=== PATIENT | female | born 1995 | race Caucasian/White ===

== ENCOUNTER 2020-03-10 20:07 | Emergency (ER) | payer BC ==
[2020-03-10 20:43] LABS: Urine Blood NEGATIVE (NEG); Urine Glucose NEGATIVE (NEG); Urine Protein NEGATIVE (NEG); Urine pH 6.5 (5.0-7.0)
[2020-03-10 21:57] LABS: Absolute Lymphocytes (CBC) 1.8 K/uL (0.7-4.9); Basophils % 0.5 % (0-1.3); Hematocrit 40.8 % (36.0-45.0); Lymphocytes % 26.9 % (15.3-44.8); MPV 10.4 fL (7.6-11.3); RBC Red Blood Cell Count 4.69 M/uL (3.86-4.86)
[2020-03-10 22:31] LABS: BUN Blood Urea Nitrogen 13 mg/dL (7-18); Bicarbonate 28 mmol/L (21-32); Glucose Level 114 mg/dL (74-106); HCG, Quantitative 50 mIU/mL (1-3); Potassium 3.5 mmol/L (3.5-5.1); Sodium Level 140 mmol/L (136-145)
--- NOTE | 2020-03-10 22:57 | EDPHYS ---
Physician Documentation [facility] Name: Fallon Mckinley Age: 24 yrs Sex: Female : 1995 Arrival Date: 03/10/2020 Time: 20:11 Bed 24 Private MD: ED Physician Kushal Patricia HPI: 03/10 20:51 This 24 yrs old Female presents to ER via Ambulatory with complaints of pm1 Abdominal Pain. 20:51 The patient presents with abdominal pain in the left lower quadrant. pm1 20:51 Onset: The symptoms/episode began/occurred today. The symptoms radiate to left groin. pm1 Associated signs and symptoms: Pertinent positives: nausea, morning sickness last week, breast tenderness, Pertinent negatives: chest pain, constipation, diarrhea, dysuria, fever, shortness of breath, vaginal discharge, Vaginal bleeding. The symptoms are described as crampy. Modifying factors: The symptoms are alleviated by nothing, the symptoms are aggravated by nothing. The patient has been recently seen by a physician: an hand molder specialist, with similar presenting complaints, and apparently given a diagnosis of complete miscarriage of very early (highest beta hcg of 25 in January 2020). HOME HEALTH LPN: 20:31 LMP 01/15/2020 rr5 Historical: - Allergies: 20:26 No Known Allergies; rr5 - PMHx: 20:26 melanoma; Asthma; SEIZURES PER MOTHER; Migraines; rr5 - PSHx: 20:26 skin cancer melanoma surgery; rr5 - Immunization history:: Adult Immunizations up to date. - Social history:: Smoking status: unknown Patient uses alcohol, occasionally. Patient/guardian denies using street drugs. ROS: 20:51 Constitutional: Negative for fever, chills, and weight loss, Cardiovascular: Negative pm1 for chest pain, palpitations, and edema, Respiratory: Negative for shortness of breath, cough, wheezing, and pleuritic chest pain. 20:51 Back: Negative for injury and pain, : Negative for injury, bleeding, discharge, and swelling, MS/Extremity: Negative for injury and deformity, Skin: Negative for injury, rash, and discoloration, Neuro: Negative for headache, weakness, numbness, tingling, and seizure. 20:51 Abdomen/GI: Positive for abdominal pain, of the left lower quadrant, nausea last week, Negative for diarrhea, constipation. Exam: 20:51 Constitutional: This is a well developed, well nourished patient who is awake, alert, pm1 and in no acute distress. Head/Face: Normocephalic, atraumatic. Neck: Trachea midline, no thyromegaly or masses palpated, and no cervical lymphadenopathy. Supple, full range of motion without nuchal rigidity, or vertebral point tenderness. No Meningismus. 20:51 Back: No spinal tenderness. No costovertebral tenderness. Full range of motion. Skin: Warm, dry with normal turgor. Normal color with no rashes, no lesions, and no evidence of cellulitis. MS/ Extremity: Pulses equal, no cyanosis. Neurovascular intact. Full, normal range of motion. 20:51 Cardiovascular: Exam negative for acute changes, Rate: normal, Rhythm: regular, Pulses: no pulse deficits are appreciated. 20:51 Respiratory: Exam negative for acute changes, respiratory distress, shortness of breath. 20:51 Abdomen/GI: Exam negative for acute changes, Inspection: abdomen appears normal, Palpation: abdomen is soft and non-tender, in all quadrants, mass, is not appreciated, rebound tenderness, is not appreciated. 20:51 Neuro: Exam negative for acute changes, Orientation: is normal, Mentation: is normal, Motor: is normal, moves all fours. Vital Signs: 20:15 BP 132 / 89; Pulse 79; Resp 16; Temp 98.5; Pulse Ox 100% ; Weight 65.77 kg; Height 5 rr5 ft. 7 in. (170.18 cm); Pain 0/10; 21:00 BP 118 / 57; Pulse 75; Resp 18; Pulse Ox 100% on R/A; wh 22:30 BP 119 / 63; Pulse 82; Resp 18; Pulse Ox 100% on R/A; wh 20:15 Body Mass Index 22.71 (65.77 kg, 170.18 cm) rr5 MDM: 20:28 Patient medically screened. pm1 22:50 Data reviewed: vital signs. Data interpreted: Pulse oximetry: on room air is 100 %. pm1 Interpretation: normal. Counseling: I had a detailed discussion with the patient and/or guardian regarding: the historical points, exam findings, and any diagnostic results supporting the discharge/admit diagnosis, lab results, the need for outpatient follow up, an OB/Gyne specialist, to return to the emergency department if symptoms worsen or persist or if there are any questions or concerns that arise at home. 23:12 ED course: Patient with early with beta HCG of 50. Patient reports completion pm1 of miscarrige on February 13. She had an early with vaginal bleeding that was evaluated by her OB on February 10. Her beta hcg on that day was 25. Her bleeding resolved and a repeat beta hcg on February 13 was 0. Patient has been actively trying to get . 23:12 ED course: Patient without any pain on examination or vaginal bleeding. Patient reports pm1 onset of breast tenderness last week. Patient is approximately 1-2 weeks with beta HCG of 50. Explained to her that she does not have any clinical signs of ectopic and ultrasound at this moment would not be able to visualize the since the beta hcg is low. The patient has follow up with OB and has labs scheduled for Monday. Instructed the patient on return precautions . 03/10 20:40 Order name: Urine Dipstick--Ancillary (enter results); Complete Time: 21:06 2 03/10 20:40 Order name: Urine --Ancillary (enter results); Complete Time: 21:06 2 03/10 21:14 Order name: Quantitative Hcg; Complete Time: 22:39 pm1 03/10 21:14 Order name: Abo/rh Typing pm1 03/10 21:14 Order name: Basic Metabolic Panel; Complete Time: 22:39 pm1 03/10 21:14 Order name: CBC with Diff; Complete Time: 22:07 pm1 03/10 20:30 Order name: Urine Dipstick-Ancillary (obtain specimen); Complete Time: 20:36 pm1 03/10 20:30 Order name: Urine Test (obtain specimen); Complete Time: 20:36 pm1 03/10 21:14 Order name: IV Saline Lock; Complete Time: 21:30 pm1 03/10 21:14 Order name: Labs collected and sent; Complete Time: 21:30 pm1 03/10 21:14 Order name: NPO; Complete Time: 21:30 pm1 Administered Medications: No medications were administered Disposition: 03/11 00:10 Co-signature as Attending Physician, Kushal Patricia MD. [email or web address] Disposition: 03/10/20 22:56 Discharged to Home. Impression: Other specified related conditions, first trimester - Early . - Condition is Stable. - Discharge Instructions: First Trimester of . - Medication Reconciliation Form, Thank You Letter, Antibiotic Education, Prescription Opioid Use form. - Follow up: Emergency Department; When: As needed; Reason: Worsening of condition. Follow up: Private Physician; When: 2 - 3 days; Reason: Recheck today's complaints, Continuance of care, Re-evaluation by your physician. - Problem is new. - Symptoms have improved. Signatures: Dispatcher [employer] EDMS Leno Bills, OFFICE AUTOMATION TECHNICIAN OFFICE AUTOMATION TECHNICIAN pm1 Leilavalentin, Lucas Coates RN RN rr5 Kushal Patricia MD MD [email or web address] Corrections: (The following items were deleted from the chart) 03/10 22:58 22:56 03/10/2020 22:56 Discharged to Home. Impression: Other specified pm1 related conditions, first trimester - Early . Condition is Stable. Forms are Medication Reconciliation Form, Thank You Letter, Antibiotic Education, Prescription Opioid Use. Follow up: Emergency Department; When: As needed; Reason: Worsening of condition. Follow up: Private Physician; When: 2 - 3 days; Reason: Recheck today's complaints, Continuance of care, Re-evaluation by your physician. Problem is new. Symptoms have improved. pm1 23:17 22:58 03/10/2020 22:56 Discharged to Home. Impression: Other specified wh related conditions, first trimester - Early . Condition is Stable. Discharge Instructions: First Trimester of . Forms are Medication Reconciliation Form, Thank You Letter, Antibiotic Education, Prescription Opioid Use. Follow up: Emergency Department; When: As needed; Reason: Worsening of condition. Follow up: Private Physician; When: 2 - 3 days; Reason: Recheck today's complaints, Continuance of care, Re-evaluation by your physician. Problem is new. Symptoms have improved. pm1 03/11 02:05 03/10 20:51 Associated signs and symptoms: Pertinent positives: nausea, morning pm1 sickness last week, Pertinent negatives: chest pain, constipation, diarrhea, dysuria, fever, shortness of breath, vaginal discharge, Vaginal bleeding, pm1
--- NOTE | 2020-03-10 22:57 | ER ---
Nurse's Notes [facility] Name: Fallon Mckinley Age: 24 yrs Sex: Female : 1995 Arrival Date: 03/10/2020 Time: 20:11 Bed 24 Private MD: Diagnosis: Other specified related conditions, first trimester-Early Presentation: 03/10 20:15 Chief complaint: Patient states: I am having left side abdominal pain going to groin rr5 area and feel nauseous on and off. i took test 3x it shows positive. Had a miscarriage last february 07, 2020. denies vaginal discharge, urine problem or diarrhea. 20:15 Coronavirus screen: Proceed with normal triage. Ebola Screen: Patient negative for rr5 fever greater than or equal to 101.5 degrees Fahrenheit, and additional compatible Ebola Virus Disease symptoms Patient denies exposure to infectious person. Patient denies travel to an Ebola-affected area in the 21 days before illness onset. Initial Sepsis Screen: Does the patient meet any 2 criteria? No. Patient's initial sepsis screen is negative. Does the patient have a suspected source of infection? No. Patient's initial sepsis screen is negative. Risk Assessment: Do you want to hurt yourself or someone else? Patient reports no desire to harm self or others. Onset of symptoms was March 10, 2020. 20:15 Method Of Arrival: Ambulatory rr5 20:15 Acuity: EMERSON 3 rr5 APRON TRIMMER: 20:31 LMP 01/15/2020 rr5 Historical: - Allergies: 20:26 No Known Allergies; rr5 - PMHx: 20:26 melanoma; Asthma; SEIZURES PER MOTHER; Migraines; rr5 - PSHx: 20:26 skin cancer melanoma surgery; rr5 - Immunization history:: Adult Immunizations up to date. - Social history:: Smoking status: unknown Patient uses alcohol, occasionally. Patient/guardian denies using street drugs. Screenin:11 Abuse screen: Denies threats or abuse. Denies injuries from another. Nutritional wh screening: No deficits noted. Tuberculosis screening: No symptoms or risk factors identified. Fall Risk None identified. Assessment: 20:45 General: Appears in no apparent distress. Behavior is calm, cooperative, appropriate wh for age. Pain: Complains of pain in suprapubic area Pain radiates to right leg and left leg Quality of pain is described as shooting, Pain began 2-3 days ago. Neuro: Level of Consciousness is awake, alert, obeys commands, Oriented to person, place, time, situation, Appropriate for age. Cardiovascular: Heart tones S1 S2. Respiratory: Airway is patent Respiratory effort is even, unlabored, Respiratory pattern is regular, symmetrical, Breath sounds are clear bilaterally. GI: Abdomen is flat, non-distended, Bowel sounds present X 4 quads. Abd is soft and non tender X 4 quads. : No signs and/or symptoms were reported regarding the genitourinary system. EENT: No signs and/or symptoms were reported regarding the EENT system. Derm: Skin is intact, is healthy with good turgor, Skin is pink, warm \T\ dry. normal. Musculoskeletal: Circulation, motion, and sensation intact. 22:00 Reassessment: Patient appears in no apparent distress at this time. No changes from previously documented assessment. Patient and/or family updated on plan of care and expected duration. Pain level reassessed. Patient is alert, oriented x 3, equal unlabored respirations, skin warm/dry/pink. 23:16 Reassessment: Patient appears in no apparent distress at this time. No changes from previously documented assessment. Patient and/or family updated on plan of care and expected duration. Pain level reassessed. Patient is alert, oriented x 3, equal unlabored respirations, skin warm/dry/pink. Vital Signs: 20:15 BP 132 / 89; Pulse 79; Resp 16; Temp 98.5; Pulse Ox 100% ; Weight 65.77 kg; Height 5 rr5 ft. 7 in. (170.18 cm); Pain 0/10; 21:00 BP 118 / 57; Pulse 75; Resp 18; Pulse Ox 100% on R/A; wh 22:30 BP 119 / 63; Pulse 82; Resp 18; Pulse Ox 100% on R/A; wh 20:15 Body Mass Index 22.71 (65.77 kg, 170.18 cm) rr5 ED Course: 20:11 Patient arrived in ED. bp1 20:24 Triage completed. rr5 20:26 Arm band placed on left wrist. rr5 20:28 [facility] Bills [facility] pm1 20:28 Kushal Patricia MD is Attending Physician. pm1 20:30 Marcel Olvera is Primary Nurse. 21:11 Patient has correct armband on for positive identification. Bed in low position. Call wh light in reach. Side rails up X 1. Pulse ox on. NIBP on. 21:30 Inserted saline lock: 20 gauge in left antecubital area, using aseptic technique. Blood wh collected. 23:17 No provider procedures requiring assistance completed. IV discontinued, intact, wh bleeding controlled, No redness/swelling at site. Administered Medications: No medications were administered Outcome: 22:56 Discharge ordered by MD. pm1 23:17 Discharged to home ambulatory. 23:17 Condition: stable 23:17 Discharge instructions given to patient, Instructed on discharge instructions, follow up and referral plans. POC Demonstrated understanding of instructions, follow-up care, POC 23:17 Patient left the ED. Signatures: Leno Bills, MATHEMATICS TECHNICIAN MATHEMATICS TECHNICIAN pm1 Marcel Olvera Lucas Funes, RN RN rr5 [place] bp1
[2020-03-10 23:40] VITALS: TEMP 98.5; O2SAT 100
[2020-03-10 23:43] VITALS: BP 119/63
== END 2020-03-10 23:17 | disposition home or self-care (01) ==
LOC: ER 20:07
DX: O26.891 Other specified pregnancy related conditions, first trimester (principal); O99.351 Diseases of the nervous system complicating pregnancy, first trimester; G40.909 Epilepsy, unspecified, not intractable, without status epilepticus; Z3A.00 Weeks of gestation of pregnancy not specified
CPT/HCPCS: 36415; 80048; 81003; 81025; 84702; 85025; 86900; 86901; 99283